=== PATIENT | female | born 1945 | race Asian ===

== ENCOUNTER 2023-01-22 09:39 | Emergency (ER) | payer OTHER, MEDICAID ==
[~2023-01-22] VITALS: Ht 157.5 cm; Wt 67.1 kg
--- NOTE | 2023-01-22 09:39 | NUR ---
[facility] ALS TO ER BED 6
[2023-01-22 09:47] VITALS: BP 184/96; PULSE 78; RESP 20; TEMP 96.9; O2SAT 99
--- NOTE | 2023-01-22 10:07 | NUR ---
Lab at bedside.
--- NOTE | 2023-01-22 10:12 | NUR ---
Patient ambulated to restroom with steady gait.
[2023-01-22 10:13] LABS: BASOPHILS % (AUTO) 0.5 % (0.0-2.0); EOSINOPHILS % (AUTO) 0.2 % (0.0-4.0); HEMOGLOBIN 14.3 g/dL (12.0-16.0); LYMPHOCYTES # (AUTO) 0.8 K/uL (2.5-16.5); LYMPHOCYTES % (AUTO) 9.4 % (20.5-51.1); MEAN CORPUSCULAR HEMOGLOBIN 30 pg (27-31); MEAN CORPUSCULAR HGB CONC 33 g/dL (33-37); MONOCYTES # (AUTO) 0.6 K/uL (0.8-1.0); NEUTROPHILS # (AUTO) 7.1 K/uL (1.8-7.7); NEUTROPHILS % (AUTO) 82.9 % (42.2-75.2); PLATELET COUNT (AUTO) 179 K/uL (140-450); RED BLOOD CELL COUNT(AUTO) 4.78 MIL/uL (4.20-5.40); RED CELL DISTRIBUTION WIDTH 14.2 % (11.6-13.7); WHITE BLOOD COUNT (AUTO) 8.6 K/uL (4.8-10.8)
[2023-01-22 10:30] LABS: ALBUMIN 3.4 g/dL (3.4-5.0); ANION GAP 12.4 (8-16); ASPARTATE AMINOTRANSFERASE 18 U/L (15-37); CARBON DIOXIDE 27.1 mmol/L (21-32); CHLORIDE 106 mmol/L (98-107); CREATININE 0.6 mg/dL (0.6-1.3); GLUCOSE 120 mg/dL (74-106); POTASSIUM 3.5 mmol/L (3.5-5.1); SODIUM SERUM 142 mmol/L (136-145); TOTAL BILIRUBIN 0.3 mg/dL (0.0-1.0); UREA NITROGEN, BLOOD 12 mg/dL (7-18)
--- NOTE | 2023-01-22 10:51 | NUR ---
Patient has daughter at bedside.
--- NOTE | 2023-01-22 10:54 | NUR ---
Patient was offered a sandwich
[2023-01-22 11:55] VITALS: TEMP 97.1
--- NOTE | 2023-01-22 11:55 | NUR ---
PT IV discontinued and patient is discharged.
--- NOTE | 2023-01-22 11:55 | NUR ---
Patient discharged with v/s stable. Written and verbal after care instructions given. Patient verbalized understanding. Ambulatory with steady gait. All questions addressed prior to discharge. Advised to follow up with PMD.
[2023-01-22 12:04] VITALS: BP 156/60; PULSE 83; RESP 19; O2SAT 98
--- NOTE | 2023-01-22 12:35 | NUR ---
The patient's care was reviewed and supervised by MAURICE HOFFMAN RN.
== END 2023-01-22 11:55 | disposition home or self-care (01) ==
LOC: MED 09:39
DX: E11.649 Type 2 diabetes mellitus with hypoglycemia without coma (principal); I10 Essential (primary) hypertension; R41.0 Disorientation, unspecified; Z79.4 Long term (current) use of insulin; Z79.899 Other long term (current) drug therapy
CPT/HCPCS: 36415; 80053; 85025; 93005; 99284